=== PATIENT | female | born 1960 | race Caucasian/White ===

== ENCOUNTER → 2020-07-07 | Outpatient (CLI) | payer OTHER | LOC: LAB | PROVIDERS: ATTEND Internal Medicine Cardiovascular Disease | DX: Z01.812 Encounter for preprocedural laboratory examination (principal); Z20.822 Contact with and (suspected) exposure to COVID-19 ==

== ENCOUNTER 2020-07-12 06:23 | Observation (INO) | payer OTHER ==
[~2020-07-12] VITALS: Ht 157.5 cm; Wt 115.2 kg
[2020-07-12 07:17] VITALS: BP 98/37
[2020-07-12 07:24] LABS: ABSOLUTE NEUTROPHILS 6.6 thou/uL (1.4-8.2); BASOPHILS 0.5 % (0.0-2.0); EOSINOPHILS 1.5 % (0.0-3.0); HEMATOCRIT 38.8 % (37.0-47.0); HEMOGLOBIN 12.7 gm/dL (12.0-15.0); LYMPHOCYTES 15.6 % (24.0-44.0); MCH 31.1 pg (26.0-34.0); MCHC 32.7 g/dL (28.0-37.0); MCV 95.1 fL (80.0-100.0); MONOCYTES 10.5 % (1.0-8.0); PLATELET COUNT 215 thou/uL (150-400); POLYS 71.9 % (36.0-66.0); RBC 4.08 mil/uL (4.20-5.00); RDW 13.9 % (10.5-14.5); WBC 9.2 thou/uL (4.0-11.0)
[2020-07-12 07:27] LABS: CALCIUM 8.6 mg/dL (8.5-10.1); CREATININE 0.7 mg/dL (0.6-1.0); POTASSIUM 4.3 mmol/L (3.5-5.1)
[2020-07-12 07:33] LABS: ALBUMIN 3.3 g/dL (3.4-5.0); TOTAL BILIRUBIN 0.7 mg/dL (0.2-1.0)
[2020-07-12 07:43] LABS: APTT 25.1 Seconds (24.5-32.8); PROTIME 10.6 Seconds (9.3-11.4)
[2020-07-12] MEDS ORDERED: PROAIR HFA8.5 GM INH (07:54)
[2020-07-12] MEDS ORDERED: ALBUTEROL2.5 MG/31 INH (07:54)
[2020-07-12] MEDS ORDERED: LIPITOR10 MG PO (07:54)
[2020-07-12] MEDS ORDERED: BUMEX2 MG PO (07:55)
[2020-07-12] MEDS ORDERED: LANOXIN125 MCG PO (07:56)
[2020-07-12] MEDS ORDERED: FERROUS SULFAT325 MG PO (07:57)
[2020-07-12] MEDS ORDERED: LORATIDINE 10 M10 M1 PO (07:57)
[2020-07-12] MEDS ORDERED: MELOXICAM15 MG PO (07:57)
[2020-07-12] MEDS ORDERED: METOPROLOL SUC200 MG PO (07:58)
[2020-07-12] MEDS ORDERED: SUPER THERAVIT1 EACH PO (07:59)
[2020-07-12] MEDS ORDERED: FISH OIL 1,0001 EAC9 PO (07:59)
[2020-07-12] MEDS ORDERED: XARELTO20 MG PO (08:01)
[2020-07-12] MEDS ORDERED: KLOR-CON 1010 MEQ PO (08:01)
[2020-07-12] MEDS ORDERED: SPIRONOLACTONE25 MG PO (08:02)
--- NOTE | 2020-07-12 12:33 | P ---
[facility] [place] [address] PROCEDURE REPORT Name: NELSON WICK Room #: REG LEANNA ChristieMikaelJorge LMikael#: [id number] Admission: 07/12/20 Attend Phys: Ever Valadez MD Discharge: Date of : 60 Report #: [id number] THIS REPORT FOR: cc: Adam Aparicio MD, Prashnith S. MD Couchonnal, Luis F. MD ~ DATE OF SERVICE: 07/12/2020 PREOPERATIVE DIAGNOSES: 1. Nonischemic cardiomyopathy. 2. York Heart Association functional class 3 heart failure. 3. Permanent atrial fibrillation with difficult to control rates. POSTOPERATIVE DIAGNOSES: 1. Nonischemic cardiomyopathy. 2. York Heart Association functional class 3 heart failure. 3. Permanent atrial fibrillation with difficult to control rates. PROCEDURE PERFORMED: Bi-V ICD implantation. ANESTHESIA: The patient underwent MAC anesthesia with no anesthesia related complications. DESCRIPTION OF PROCEDURE: The patient underwent informed consent. We discussed the details of the procedure including the risks, which include but not limited to bleeding, infection, vascular damage, cardiac perforation, pneumothorax. She understood these risks and was willing to proceed. The patient was brought to EP laboratory in fasting and sedated state, prepped and draped in a sterile fashion receiving IV antibiotics and underwent a venogram showing patency of left axillary vein. Next, lidocaine was injected below the level of clavicle. Incision was made, pocket was created over the prepectoral fascia and access was obtained twice to left axillary vein using the extrathoracic approach with the sheaths positioned using the modified Seldinger technique. Next, under fluoroscopy, a RV lead was positioned into the right ventricular apex. Of note, she had a very large right ventricle and she had poor R waves throughout. I deployed the lead in multiple locations, all with very low R waves, but good pacing thresholds. Next, a coronary guide sheath was placed into the right atrium and we quickly got into the coronary sinus and there was evidence of a nice anterolateral branch where I was able to position lead with good pacing thresholds and no phrenic nerve stimulation. The sheath was split, lead remained in place and lead was sutured to prepectoral fascia using Ethibond suture. Pocket was irrigated. Device connected. Tug test performed and device was tested and found to be functioning normally. The atrial lead was capped given her known permanent atrial fibrillation and anticipated upcoming AV node ablation at a future date. The pocket was closed in 2 layers using 2-0 for the [facility] [address] [place] [address] PROCEDURE REPORT Name: NELSON WICK Room #: REG [facility]#: [id number] Admission: 07/12/20 Attend Phys: Ever Valadez MD Discharge: Date of : 60 Report #: [id number] deep layer, 3-0 for the mid layer and surgical glue was placed to outer skin layer. The patient awoke neurologically and hemodynamically intact. No complications and no significant bleeding. Implanted defibrillator was a [employer], model #[id number], serial #[id number]. RV lead was a 6935, 62 cm, serial #[id number] and the LV lead was a Medtronic 4298, serial #[id number]. The RV lead demonstrated P waves 4.5 millivolts, pacing impedance 703 ohms, pacing threshold 0.5 volts at 0.4 milliseconds. The RV lead demonstrated pacing threshold of 1 volt at 0.4 milliseconds from the distal poles with a pacing impedance of 874 ohms and no evidence of phrenic nerve capture. The device was programmed to the VVIR 60-130 mode. The VT zone was set at 180-220 beats per minute with 3 rounds of burst followed by 3 rounds of ramp followed by max output shocks. VF zone was set at greater than 220 beats per minute with ATP while charging followed by max output shocks. CONCLUSIONS: 1. Successful BiV ICD implantation. 2. Satisfactory right ventricular and left ventricular pacing and sensing thresholds. RECOMMENDATIONS: 1. The patient will be monitored overnight and follow up in 1 week in clinic. 2. We will schedule her AV node ablation at a future date once her device appears to be functioning stably and there are no signs of infection. <ELECTRONICALLY SIGNED> By: Ever Valadez MD 07/12/20 1233 [id number] Ever Valadez MD /nt
[2020-07-12 19:48] VITALS: BP 108/72
--- NOTE | 2020-07-12 20:02 | NUR ---
ASSUMED CARE OF PT AT APPROX 1400 FROM EP LAB D/T PACEMAKER PLACEMENT. ADMISSION COMPLETE. PT A&OX4, NO C/O PAIN OR DISTRESS. INCISION IN LEFT UPPER CHEST, IS INTACT WITH DERMABOND, NO HEMATOMA OR BRUISING. PLAN FOR DISCHARGE IN MORNING. WILL CONTINUE TO MONITOR AND FOLLOW POC.
[2020-07-13 03:52] VITALS: BP 126/88
--- NOTE | 2020-07-13 07:30 | NUR ---
PATIENTS CARES WERE ASSUMED AT SHIFT CHANGE. PATIENT WAS ASSESSED AND MEDS WERE TAKEN. PATIENT IS IN A BRACE TO HO;D HER CHEST AND LEFT SIDE TOGETHER. PATIENT BELIEVES SHE IS GOING HOME TODAY. SHE SPEEKS WITH A MONTSERRATIAN ACCIENT HOWEVER SHE IS EASY TO UNDERSTAND. HOURLY ROUNDS WERE MADE. THE BED IS IN A LOW AND LOCKED POSITION.
[2020-07-13 08:00] VITALS: BP 155/86
[2020-07-13 08:13] VITALS: BP 112/80
--- NOTE | 2020-07-13 10:09 | NUR ---
ASSUMED CARE AT CHANGE OF SHIFT. PT ALERTX4, DENIES CHEST PAIN, DENIES SOB, IMMOBILIZER OFF AT THIS TIME. INCISION INTACT. INTERIGATION AND CHESTXR COMPLETE. POST PACEMEAKER EDUCATION PROVIDED BY GERALDO MAYORGA. APACED ON TELE WITH SINUS TACH TX WITH MEDICATION THATCARDIOLOGY AWARE. READY TO DISCHARGE FROM CARDIOLOGY STAND POINT. REVIEWED DISCHARGE PAPERS WITH PT AND SPOUCE.
[2020-07-13 10:16] VITALS: BP 112/80
== END 2020-07-13 11:08 | disposition home or self-care (01) ==
LOC: CATH 06:23 → 2N 14:50 → CATH 14:51 → 2N 14:51
PROVIDERS: ADMIT Internal Medicine Cardiovascular Disease; ATTEND Internal Medicine Cardiovascular Disease
DX: I42.8 Other cardiomyopathies (principal); I48.21 Permanent atrial fibrillation; I11.0 Hypertensive heart disease with heart failure; I50.9 Heart failure, unspecified; E78.5 Hyperlipidemia, unspecified; E66.9 Obesity, unspecified; G47.33 Obstructive sleep apnea (adult) (pediatric)

== ENCOUNTER → 2020-07-27 | Outpatient (CLI) | payer OTHER ==
[~2020-07-27] MED LIST: ALBUTEROL2.5 MG/31 INH; BUMEX2 MG PO; FERROUS SULFAT325 MG PO; FISH OIL 1,0001 EAC9 PO; KLOR-CON 1010 MEQ PO; LANOXIN125 MCG PO; LIPITOR10 MG PO; LORATIDINE 10 M10 M1 PO; MELOXICAM15 MG PO; METOPROLOL SUC200 MG PO; PROAIR HFA8.5 GM INH; SPIRONOLACTONE25 MG PO; SUPER THERAVIT1 EACH PO; XARELTO20 MG PO
== END ==
LOC: LAB 07-26 09:52
PROVIDERS: ATTEND Internal Medicine Cardiovascular Disease
DX: Z01.812 Encounter for preprocedural laboratory examination (principal); Z20.822 Contact with and (suspected) exposure to COVID-19

== ENCOUNTER → 2020-07-31 | Outpatient (CLI) | payer OTHER ==
[~2020-07-31] VITALS: Ht 157.5 cm; Wt 115.2 kg
--- NOTE | ~2020-07-31 | P ---
[facility] [place] [address] PROCEDURE REPORT Name: NELSON WICK Room #: REG LEANNA ChristieMikaelJorge LMikael#: [id number] Admission: 07/31/20 Attend Phys: Ever Valadez MD Discharge: Date of : 60 Report #: [id number] THIS REPORT FOR: cc: Adam Aparicio MD, Prashnith S. MD Couchonnal, Luis F. MD ~ DATE OF SERVICE: 07/31/2020 PREOPERATIVE DIAGNOSES: 1. Atrial fibrillation. 2. Nonischemic cardiomyopathy. POSTOPERATIVE DIAGNOSES: 1. Atrial fibrillation. 2. Nonischemic cardiomyopathy. PROCEDURES PERFORMED: 1. AV node ablation, CPT code 91402. 2. Preprocedural ICD reprogramming, CPT code 37125. 3. Post-procedural ICD reprogramming, CPT code 26363. HISTORY: The patient is a 60-year-old female with a history of a nonischemic cardiomyopathy, EF of less than 35%, permanent atrial fibrillation with difficult to control rates, who is status post Bi-V ICD implantation. She is healed from this procedure and is therefore here for AV node ablation. ANESTHESIA: The patient underwent MAC anesthesia with no anesthesia-related complications. DESCRIPTION OF PROCEDURE: The patient underwent informed consent. We discussed the details of the procedure including the risks, which include but not limited to bleeding, vascular damage, stroke, [place]. She understood these risks and is willing to proceed. The patient was brought to EP laboratory in a fasting and sedated state, prepped and draped in a sterile fashion. Preprocedure, we turned off her ICD therapies and set her lower pacing rate to 40 beats per minute. Next, I obtained access to the right femoral vein x 1, placing an SR0 sheath into the right atrium and an 8-mm Biosense Weiner ablation catheter into the right atrium. Next, guided by intracardiac electrograms, I found a nice His bundle signal. Ablation here resulted in slowing, but not complete heart block. Approximately 2-3 minutes of ablation was performed throughout this region, which eventually resulted in a ventricular rate in the 40s. She was left with a slow underlying heart rate. We monitored for a period of 20 minutes and there was no return of conduction. As such, catheters and sheaths were pulled and hemostasis was obtained. Her ICD [facility] [address] [place] [address] PROCEDURE REPORT Name: NELSON WICK Room #: REG [facility].#: [id number] Admission: 07/31/20 Attend Phys: Ever Valadez MD Discharge: Date of : 60 Report #: [id number] was re-interrogated and her ICD therapies were re-enabled and her device was programmed to the VVIR 80-130 mode. CONCLUSIONS: 1. Successful AV node ablation. 2. Successful preprocedure and post-procedure biventricular ICD reprogramming. By: [id number] Ever Valadez MD /yariel
[2020-07-31 10:38] LABS: ABSOLUTE NEUTROPHILS 7.7 thou/uL (1.4-8.2); BASOPHILS 0.3 % (0.0-2.0); EOSINOPHILS 1.2 % (0.0-3.0); HEMATOCRIT 37.8 % (37.0-47.0); HEMOGLOBIN 12.3 gm/dL (12.0-15.0); LYMPHOCYTES 11.3 % (24.0-44.0); MCH 31.1 pg (26.0-34.0); MCHC 32.6 g/dL (28.0-37.0); MCV 95.3 fL (80.0-100.0); MONOCYTES 10.2 % (1.0-8.0); PLATELET COUNT 237 thou/uL (150-400); RBC 3.97 mil/uL (4.20-5.00); RDW 14.5 % (10.5-14.5)
[2020-07-31 10:47] LABS: CALCIUM 8.8 mg/dL (8.5-10.1); CREATININE 0.8 mg/dL (0.6-1.0); POTASSIUM 4.2 mmol/L (3.5-5.1)
[2020-07-31 10:48] LABS: APTT 27.5 Seconds (24.5-32.8); PROTIME 10.9 Seconds (9.3-11.4)
[2020-07-31 10:53] LABS: ALBUMIN 3.5 g/dL (3.4-5.0); TOTAL BILIRUBIN 0.7 mg/dL (0.2-1.0); TOTAL PROTEIN 7.4 g/dL (6.4-8.2)
== END | disposition home or self-care (01) ==
LOC: CATH 09:03
PROVIDERS: ATTEND Internal Medicine Cardiovascular Disease
DX: I48.21 Permanent atrial fibrillation (principal); I42.9 Cardiomyopathy, unspecified; I11.0 Hypertensive heart disease with heart failure; I50.9 Heart failure, unspecified; E78.5 Hyperlipidemia, unspecified; G47.33 Obstructive sleep apnea (adult) (pediatric); J45.909 Unspecified asthma, uncomplicated; M19.90 Unspecified osteoarthritis, unspecified site; E66.9 Obesity, unspecified; Z98.890 Other specified postprocedural states; Z79.899 Other long term (current) drug therapy; Z96.653 Presence of artificial knee joint, bilateral
CPT/HCPCS: 62110; 62900; 70005